=== PATIENT | male | born 1960 | race Caucasian/White ===

== ENCOUNTER → 2021-05-09 | Outpatient (CLI) | payer MEDICARE, OTHER | LOC: RAD 11:11 | DX: C90.00 Multiple myeloma not having achieved remission (principal) | CPT/HCPCS: 77075 ==

== ENCOUNTER → 2021-07-12 | Outpatient (CLI) | payer MEDICARE, OTHER | LOC: MRI 07:48 | DX: M89.9 Disorder of bone, unspecified (principal); M27.8 Other specified diseases of jaws; R93.7 Abnormal findings on diagnostic imaging of other parts of musculoskeletal system | CPT/HCPCS: 70543; A9577 ==

== ENCOUNTER → 2021-12-12 | Outpatient (CLI) | payer MEDICARE, OTHER | LOC: RAD 11:50 | DX: C90.00 Multiple myeloma not having achieved remission (principal); M27.8 Other specified diseases of jaws; M89.9 Disorder of bone, unspecified | CPT/HCPCS: 77075 ==